=== PATIENT | female | born 1950 | race Caucasian/White ===

== ENCOUNTER → 2017-04-30 | Outpatient (CLI) | payer OTHER | LOC: EDSTATUS 11:52 → FIMAGING 13:10 | PROVIDERS: ATTEND Family Medicine | DX: M21.70 Unequal limb length (acquired), unspecified site (principal) ==

== ENCOUNTER 2018-08-19 07:30 | Inpatient (IN) | payer OTHER ==
[2018-08-28] MEDS ORDERED: CHLORHEXIDINE GLUC HIBICLENS 118 ML BTL TP ONE (10:55)
[2018-08-28] MEDS ORDERED: EPINEPHrine 1 MG/ML INJ ONE (10:55)
[2018-08-28] MEDS ORDERED: THROMBIN (BOVINE) 20,000 UNIT VIAL TP ONE (10:55)
[2018-08-28] MEDS ORDERED: BUPIVACAINE 0.25% 30 ML SDV ONE (10:55)
[2018-08-28] MEDS ORDERED: BACITRACIN 50,000 UNITS/10 ML SYR IRR ONE ×2 (10:55→14:50)
[2018-08-28] MEDS ORDERED: ACETAMINOPHEN 500 MG TAB PO ONE (10:58)
[2018-08-28] MEDS ORDERED: GABAPENTIN 300 MG CAP PO ONE (10:58)
[2018-08-28] MEDS ORDERED: ceFAZolin 2 GM/DEXTROSE 100 ML IV ONE (10:58)
[2018-08-28] MEDS ORDERED: LR 1,000 ML IV ONE (10:59)
[2018-08-28] MEDS ORDERED: MIDAZOLAM 2 MG/2 ML VIAL IVP ONE (11:15)
--- NOTE | 2018-08-28 11:18 | PDHPUP ---
History & Physical Update H&P update statement: This history and physical update is based on an assessment of the patient which was completed after admission or registration (within 24 hours), but prior to the surgery/procedure. H&P update: H&P reviewed & patient examined, no change in patient's condition since H&P completed
[2018-08-28] MEDS ORDERED: PROPOFOL/EMULSION 500 MG/50 ML BOTTLE IV ONE ×4 (11:40→15:27)
[2018-08-28] MEDS ORDERED: SUCCINYLCHOLINE CHLORIDE 200 MG/10 ML SYR IVP ONE (11:41)
[2018-08-28] MEDS ORDERED: REMIFENTANIL HCL 1 MG VIAL ONE ×4 (11:42→15:19)
[2018-08-28] MEDS ORDERED: ePHEDrine SULFATE 25 MG/5 ML SYR ONE (11:59)
[2018-08-28] MEDS ORDERED: fentaNYL 100 MCG/2 ML INJ IVP PRN (12:23)
[2018-08-28] MEDS ORDERED: ONDANSETRON 4 MG/2 ML VIAL ONE ×3 (12:23→17:26)
[2018-08-28] MEDS ORDERED: DEXAMETHASONE 4 MG/ML VIAL ONE ×2 (12:23→12:24)
[2018-08-28] MEDS ORDERED: HYDROmorphONE/DILAUDID 2 MG/ML INJ IVP PRN ×2 (12:23→12:29)
[2018-08-28] MEDS ORDERED: oxyCODONE IR 5 MG TAB PO PRN (12:23)
[2018-08-28] MEDS ORDERED: PROMETHAZINE HCL 25 MG/ML INJ IVP PRN (12:23)
[2018-08-28] MEDS ORDERED: ONDANSETRON 4 MG/2 ML VIAL IVP PRN ×2 (12:23→12:29)
[2018-08-28] MEDS ORDERED: NALOXONE HCL 0.4 MG/ML INJ IVP PRN (12:23)
--- NOTE | 2018-08-28 12:23 | PDANEPAE ---
ANE History of Present Illness L3-S1 TLIF ANE Past Medical History - Cardiovascular History Hx Hypertension: No Hx Arrhythmias: No Hx Chest Pain: No Hx Coronary Artery / Peripheral Vascular Disease: No Hx CHF / Valvular Disease: No Hx Palpitations: No - Pulmonary History Hx COPD: No Hx Asthma/Reactive Airway Disease: No Hx Recent Upper Respiratory Infection: No Hx Oxygen in Use at Home: No Hx Sleep Apnea: No Sleep Apnea Screening Result - Last Documented: Positive - Neurologic History Hx Cerebrovascular Accident: No Hx Seizures: No Hx Dementia: No - Endocrine History Hx Diabetes: No Endocrine History Comment: HYPOTHYROID - Renal History Hx Renal Disorders: No - Liver History Hx Hepatic Disorders: No Hepatic History Comment: ELBA - Neurological & Psychiatric Hx Hx Neurological and Psychiatric Disorders: No - Cancer History Hx Cancer: No - Congenital Disorder History Hx Congenital Disorders: No - GI History Hx Gastrointestinal Disorders: No - Other Health History Other Health History: NEG - Chronic Pain History Chronic Pain: Yes (GENERALIZED PAIN BACK,BUTTOCK, NECK) - Surgical History Prior Surgeries: R KNEE MENISCUS. BREAST REDUCTION. EYE SURG -MULT -JOSE. LUMBAR FUSION 2009. 2010 CERVICAL FUSION. R ANKLE. L KNEE ACL. CHOLECYSTECTOMY. HYSTERECTOMY ANE Review of Systems Review of Systems: - Exercise capacity METS (RN): 4 METS ANE Patient History - Allergies Allergies/Adverse Reactions: Sulfa (Sulfonamide Antibiotics) Allergy (Verified 07/11/18 15:47) SKIN RASH - Home Medications Home Medications: Herbals/Supplements -Info Only 1 ea PO DAILY 07/11/18 [Last Taken 08/23/18] Ibuprofen [Motrin (*)] 200 mg PO DAILY PRN 07/11/18 [Last Taken 08/20/18] Levothyroxine [Synthroid 88 mcg (*)] 88 mcg PO DAILY06 07/11/18 [Last Taken 06:30] Biotin 08/28/18 [Last Taken 08/23/18] Cholecalciferol Vit D3 [Vitamin D3 (*)] 1,000 units PO DAILY 08/28/18 [Last Taken 08/23/18] Glucosamine/Chondroitin [Glucosamine/Chondroitin (*)] 1 each PO DAILY 08/28/18 [ Last Taken 08/23/18] Lutein/Zeaxanthin 08/28/18 [Last Taken 08/25/18] - NPO status NPO Since - Liquids (Date): 08/28/18 NPO Since - Liquids (Time): 07:00 NPO Since - Solids (Date): 08/27/18 NPO Since - Solids (Time): 21:00 - Smoking Hx Smoking Status: Never smoked - Family Anes Hx Family Hx Anesthesia Complications: NEG ANE Labs/Vital Signs - Vital Signs Blood Pressure: 128/68 Heart Rate: 61 Respiratory Rate: 20 O2 Sat (%): 97 Height: 157.48 cm Weight: 69.853 kg ANE Physical Exam - Airway Neck exam: FROM Mallampati Score: Class 2 Mouth exam: normal dental/mouth exam - Pulmonary Pulmonary: clear to auscultation - Cardiovascular Cardiovascular: regular rate and rhythym - ASA Status ASA Status: II ANE Anesthesia Plan Anesthesia Plan: general endotracheal anesthesia Total IV Anesthesia: Yes
[2018-08-28] MEDS ORDERED: LACTULOSE 20 GM/30 ML UDCUP PO PRN (12:29)
[2018-08-28] MEDS ORDERED: BISACODYL 10 MG SUPP PR PRN (12:29)
[2018-08-28] MEDS ORDERED: ONDANSETRON DISINTEGRATING 4 MG TAB PO PRN (12:29)
[2018-08-28] MEDS ORDERED: diphenhydrAMINE 25 MG CAP PO PRN (12:29)
[2018-08-28] MEDS ORDERED: MAGNESIUM HYDROXIDE 30 ML UDCUP PO PRN (12:29)
[2018-08-28] MEDS ORDERED: POLYETHYLENE GLYCOL 3350 17 GM PKT PO PRN (12:29)
[2018-08-28] MEDS ORDERED: NS 1,000 ML IV SCH (12:30)
--- NOTE | 2018-08-28 13:43 | PDMN ---
Medical Necessity Medical necessity: [facility] IP only surgery; cpt 64847 (L3/4, L5/S2 TLIF)
[2018-08-28] MEDS ORDERED: HYDROmorphONE/DILAUDID 2 MG/ML INJ ONE (15:19)
[2018-08-28] MEDS ORDERED: ceFAZolin 1 GM VIAL ONE (15:28)
[2018-08-28] MEDS ORDERED: RANITIDINE 50 MG/2 ML VIAL ONE (16:34)
--- NOTE | 2018-08-28 17:22 | POSTANESTH ---
Post Anesthetic Evaluation Cardiovascular Status: Normal, Stable Respiratory Status: Normal, Stable Level of Consciousness/Mental Status: Can Participate in Eval, Alert and Oriented Pain Control: Adequate, Prn Tx Ordered Nausea/Vomiting Control: Adequate, Prn Tx Ordered Complications Possibly Related to Anesthesia: None Noted
[2018-08-28] MEDS ORDERED: fentaNYL 100 MCG/2 ML INJ ONE (17:26)
--- NOTE | 2018-08-28 17:32 | POSTOPPROG ---
Post Op Note Date of Operation: 08/28/18 Surgeon: Brenda Lopez Densitometer Reader: Carly Rose NP Anesthesiologist: Kindra Anesthesia: GET(General Endotracheal) Pre-op Diagnosis: Lumbar Stenosis, ASD Procedure: L3-4, L5-S1 TLIF, removal of hardwre,[id number] Inf/Abcess present in the surg proc area at time of surgery?: No Depth: Deep Incisional (Fascial) EBL: 100-500 Total fluids administered: see anesthesia Complications: none Drains: Ulisses Hope Date of Surgery: 08/28/18 Post Op Day: 0 Assessment/Plan: Assessment: 68 yr old F s/p L3-4, L5-S1 TLIF with removal of hardwareL4-5 and PSF L3-S1 Plan: -Admit Med surg -Pain management, patient only tolerates Dilaudid -PT/OT -Brace on when out of bed -HASEEB bulb suction -Xrays in am -Please call neurosurgery with any questions/concerns Subjective: waking up in pacu Objective: waking up in pacu PHILLIPS X4 5/5 BLE Sensation intact to light touch BLE HASEEB patent Dressing CDI Appropriate Neuro Check Frequency Ordered: Yes
[2018-08-28] MEDS ORDERED: HYDROmorphONE/DILAUDID 1 MG/ML INJ ONE (17:51)
[2018-08-28] MEDS: HYDROmorphONE/DILAUDID 1 MG/ML INJ IVP PRN ×2 (17:54→18:13)
[2018-08-28] MEDS: ACETAMINOPHEN 500 MG TAB PO SCH ×2 (19:42→22:15)
[2018-08-28] MEDS: GABAPENTIN 300 MG CAP PO SCH ×2 (19:43→22:16)
[2018-08-28] MEDS: FAMOTIDINE 20 MG TAB PO SCH (19:55)
[2018-08-28] MEDS: SENNOSIDES/DOCUSATE SODIUM TAB PO SCH (19:55)
[2018-08-28] MEDS: ceFAZolin 2 GM/DEXTROSE 100 ML IV SCH (19:57)
[2018-08-28] MEDS: METHOCARBAMOL 750 MG TAB PO PRN (20:55)
[2018-08-28] MEDS: HYDROmorphONE/DILAUDID 2 MG TAB PO PRN (22:20)
[2018-08-29] MEDS: HYDROmorphONE/DILAUDID 2 MG TAB PO PRN ×5 (01:35→20:13)
[2018-08-29] MEDS: ceFAZolin 2 GM/DEXTROSE 100 ML IV SCH (04:20)
[2018-08-29 05:26] LABS: PLATELET COUNT 225 10^3/uL (150-400)
[2018-08-29] MEDS: LEVOTHYROXINE 88 MCG TAB PO SCH (05:59)
[2018-08-29] MEDS: GABAPENTIN 300 MG CAP PO SCH ×3 (06:00→21:39)
[2018-08-29] MEDS: ACETAMINOPHEN 500 MG TAB PO SCH ×3 (06:00→22:51)
--- NOTE | 2018-08-29 06:04 | GOP ---
DATE OF OPERATION: 08/28/2018 SURGEON: Mike Lopez MD DIE TRIMMER: Carly Rose NP. PREOPERATIVE DIAGNOSIS: 1. 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 2. Prior lumbar fusion L4-5. 3. Left footdrop. 4. Severe left foraminal stenosis L5-S1. 5. Severe disk degenerative disease L5-S1. 6. Severe spinal stenosis and bilateral recess stenosis at L3-4. 7. Bilateral lumbosacral radiculopathy. POSTOPERATIVE DIAGNOSIS: 1. 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 2. Prior lumbar fusion L4-5. 3. Left footdrop. 4. Severe left foraminal stenosis L5-S1. 5. Severe disk degenerative disease L5-S1. 6. Severe spinal stenosis and bilateral recess stenosis at L3-4. 7. Bilateral lumbosacral radiculopathy. PROCEDURE PERFORMED: 1. Posterolateral and intervertebral arthrodesis L3-4 and L5-S1 (82973, 13075). 2. Placement of biomechanical intervertebral device L3-4, L5-S1 (06365 x2). 3. Posterior segmental instrumentation L3, L4, L5, S1. 4. Removal of posterior nonsegmental instrumentation across a single interspace. 5. Microscope. 6. Same incision bone graft harvest. 7. Spinal stereotaxis. FINDINGS: Consistent with our known diagnosis. SPECIMENS: None. ESTIMATED BLOOD LOSS: 400 cc. INDICATIONS: The patient is a middle-aged female, who had a prior history of a single level lumbar f usion at L4-5 in 2008 with terrific result. She did very well from this and began over the last year or so, to develop increasing symptoms in her low back and radiating pain principally into the right leg, but she also began to develop weakness in the left foot and weakness in the left leg. Her imagi ng demonstrated the development of severe stenosis above the fusion, but there was also collapse of t he L5-S1 disk and severe neural foraminal compromise, much worse on the left than on the right, consi stent with her footdrop. We had scheduled her for adjacent segment surgery at L3-4 and L5-S1. [facility], only a single-level was approved originally, at L3-4. We delayed her surgery despite her footdro p and the physician reviewer of the case suggested that we have Radiology review the MRI. The physic sebastian reviewer suggested that we review the MRI with the radiologist and indeed we did so and reviewed the MRI with the radiologist, who agreed that there was significant left foraminal stenosis at L5-S1 that could account for the patient's clinical exam and a left-sided footdrop. After doing this and o btaining an addendum to the radiographic report, we called back the insurance company and now the davidson escalante reviewer that gave us this advice was on vacation. The case could not be approved in the abse nce of that physician reviewer, so the case got delayed. They had only approved a single-level and w e did not want to proceed without insurance approval. Because the case was delayed, even the approva l at 3-4 was now no longer valid and we had to start the process once again with the insurance compan y. We did start the process again and the day before surgery, the physician reviewer suggested that we do L3-4 and that we could do L5-S1 and that the insurance company would pay for L5-S1 provided the intraoperative findings justified doing that level and they encouraged us to proceed and so therefor e we did. I discussed with the patient the risk of nerve injury, continued symptoms, persistent foot weakness, pseudoarthrosis, adjacent segment disease and the need for revision surgery, and she wante d to proceed despite all these risks. She knew there was a chance that surgery may fail to eliminate her discomfort, but she did want to proceed. DESCRIPTION OF PROCEDURE: The patient was taken to the operating room, placed in supine position. G eneral anesthesia was begun. She was flipped prone on the Ulisses table. Care was taken to pad all points of contact. Her back was sterilely prepped and draped in the usual fashion. A localizing x-r ay was taken. Her prior incision was clearly visible. It measured about 6-1/2 to 7 cm. She was crow rilely prepped and draped and we used the prior incision, extended it inferiorly for about 2 cm and r ostrally for about 2 cm. The subcutaneous tissue was dissected using the plasma blade down through t he fascia and a subperiosteal dissection was made down the inferior lamina of L2. The complete dudley a of L3 was exposed. The hardware at L4-5 was exposed. We exposed the L5-S1 facet joints on each si de. We removed the prior hardware at L4-5 and it was relatively straightforward to remove. There wi th a crosslink in place as well. It did take some time. There was bony overgrowth over the hardware , but we were able to get it out without difficulty. We placed Gelfoam bullets in the holes that rem ained. We denuded the L3-4 and the L5-S1 facet joints on each side to create arthrodesis. We attach ed the Appianalth reference frame to the spinous process. We performed an O-arm spin, and using framele ss Stealth stereotaxy, placed pedicle screws bilaterally in the sacrum, bilaterally at L3 and then we replaced the screws at L4 and L5. There were a total of 8 screws placed. The sacral screws were bi cortical. They all stimulated at acceptable levels. There was very good bony purchase at each level . We then took a 90 mm kiet on the left and a 100 mm kiet on the right, placed it down over the tulips and distracted slightly at L3-4 and ever so slightly at L5-S1. We locked the rods in place, shot an x-ray confirming the position of our hardware and the curve of the spine. I was happy with both her lordosis as well as her coronal balance. We then removed all the soft tissue and the bone at L3-4, 4-5, 5-1, harvested the inferior L3 spinous process, the complete L4 spinous process, the L5 spinous process for autologous grafting purposes. Under the microscope, we drilled bilateral laminas at L3-4 and harvested this bone for autologous grafting purposes. We drilled out the left yanci lamina of L5 and the left L5-S1 facet joint and harvested this bone for autologous grafting purposes. Under the microscope, we then began our decompression of L5-S1, and as we drilled through the lamina at L5-S1, there was indeed bone present, but it was not normal laminar bone. It appeared that she had had a pr ior laminotomy here. There was no ligamentum flavum deep to this and this was all stuck to the dura. It did take considerable time to remove the bone from the dura. We localized the left S1 nerve chris t and then we performed a complete facetectomy and decompressed the exiting L5 nerve root. There was very significant compression of the L5 root in the neural foramen by the superior articulating proce ss of the sacrum. This was also a fact that we appreciated intraoperatively while putting in the ped icle screws and justified us doing the L5-S1 level. We performed intraoperative CT imaging. It was actually an O-arm spin and on the O-arm spin, 1 could clearly see the compromised neural foramen at t he L5-S1 level. So now we had an MRI, a patient's clinical exam and affectively CT data all showing the same thing, justifying our surgery at L5-S1. When we opened the neural foramen at L5-S1, there w as severe compression of the L5 nerve root. We decompressed it from the mid pedicle of L5 all the wa y out beyond the pedicle of S1 and we got a great decompression. I was very happy with the way the shana bajwamanuel looked at the conclusion of this part of the procedure. We performed bilateral decompressions a t L3-4 and got a great decompression at that level as well. There was severe stenosis on each side. We performed a complete right L3-4 facetectomy and decompressed the exiting L3 nerve root at L3-4. Under the operating microscope, we turned our attention to the L5-S1 disk space. We incised the disk , it was very degenerative. There was not much room in the disk space. We removed the disk and the cartilaginous endplates completely. We roughened the subchondral bone to create arthrodesis of the i nterspace. We then packed the disk space with BMP and bone autograft. We used a total of 4 mg of BM P for the entire surgery; 2 mg total were used at L5-S1 and 2 mg at L3-4, 1 mg in the interspace and 1 mg posterolaterally at each level. We chose a 7 mm [place] PEEK intervertebral device, inserted i t at L5-S1 and a great fit was obtained. We then turned our attention to L3-4 where from the right-h and side we approached the L3-4 disk, removed the disk and the cartilaginous endplates completely. W e roughened the subchondral bone to create arthrodesis at L3-4. We packed bone autograft and BMP int o the disk space at L3-4 and then inserted a 7 x 28 mm device at that level and expanded it under flu oroscopic guidance. I was happy with the positioning of the device. We then decorticated all the re maining posterolateral bone bilaterally to create arthrodesis and placed bone autograft and the remai oscar BMP posterolaterally bilaterally. A subfascial drain was placed. We then closed the incision i n multiple layers using Vicryl sutures. A running PDS was placed in the skin itself. The patient wa s reversed from anesthesia. She was then extubated and transferred to recovery room in stable condit ion. There were no complications. COMPLICATIONS: None. INSTRUMENTATION REMOVED: Solara 475 system. INSTRUMENTATION PLACED: Solara 5.5 mm system. We used an expandable Elevate cage at L3-4 and a 7 mm [place] fixed cage at L5-S1. /[id number]/MODL
--- NOTE | 2018-08-29 07:11 | NEUSURGPN ---
Date of Surgery: 08/28/18 Post Op Day: 1 Assessment/Plan: Assessment: 68 yr old F s/p L3-4, L5-S1 TLIF with removal of hardware L4-5 and PSF L3-S1 POD #1 Plan: -s/p L spine fusion and decompression-doing fine this am with expected lower back pain -continue with Med surg -Pain management, patient only tolerates Dilaudid and doing well now with this medication -PT/OT-CPM -Brace on when out of bed -HASEEB bulb suction-continue at this time -Xrays pending this am -Please call neurosurgery with any questions/concerns -pt seen by Dr Lopez as well Subjective: Awake and alert. NAD. Eating/drinking and voiding. No f/c/n/v/d. No weinberg/neck/ chest/abd or gu complaints. Passing gas Objective: AAO x 3, PERRLA/EOMI no droop CN 2-12 grossly intact PHILLIPS X4 5/5 BLE Sensation intact to light touch BLE HASEEB patent Dressing CDI Neuro Check Frequency: per routine Urinary Catheter in Place: No Catheter Insertion Date: 08/28/18 - Physician Discussed Patient with : John Patient Seen by : John Neurosurgery Physical Exam - Vitals, I&O, Labs I and O 08/28/18 08/29/18 08/30/18 05:59 05:59 05:59 Intake Total 3520 827 Output Total 1600 Balance 1920 827 Weight 69.853 kg Intake: Oral (ml) 1320 IV Intake (ml) 2200 IV Infused (ml) 827 Ns 1,000 ml @ 75 mls/hr 827 IV CONT CHLIO Rx#: [id number] Output: Urine (ml) 900 Catheter 900 Estimated Blood Loss (ml) 400 HASEEB Drain Output (ml) 300 #1 Ulisses Hope 300 Vital Signs Temp Pulse Resp BP Pulse Ox 37.0 C 73 16 105/55 L 94 08/29/18 04:00 08/29/18 04:00 08/29/18 04:00 08/29/18 04:00 08/29/18 04:00 Laboratory Results 08/29/18 05:07 08/29/18 05:07 ICD10 Worksheet Patient Problems: Problems Problem Status Onset Lumbar radicular pain Acute Lumbar stenosis Acute - ICD10 Problem Qualifiers (1) Lumbar stenosis (2) Lumbar radicular pain
[2018-08-29] MEDS: FAMOTIDINE 20 MG TAB PO SCH ×2 (08:42→20:13)
[2018-08-29] MEDS: METHOCARBAMOL 750 MG TAB PO PRN (08:42)
[2018-08-29] MEDS: SENNOSIDES/DOCUSATE SODIUM TAB PO SCH ×2 (08:42→20:13)
--- NOTE | 2018-08-29 10:16 | ASMTCMCOM ---
CM Note CM Note Notes: Patient is POD #1 L3-4, L5-S1 TLIF w removal of hardware and PSF L3-S1. Patient is normally independent and lives w her . PT/OT have been ordered. If she has any discharge needs, Case Management will follow. Date Signed: 08/29/2018 10:15 AM Electronically Signed By:Love Joiner RN
[2018-08-30 00:07] VITALS: BP 108/54
[2018-08-30] MEDS: HYDROmorphONE/DILAUDID 2 MG TAB PO PRN ×2 (01:27→08:48)
[2018-08-30] MEDS: LEVOTHYROXINE 88 MCG TAB PO SCH (07:00)
[2018-08-30] MEDS: GABAPENTIN 300 MG CAP PO SCH ×2 (07:00→13:53)
[2018-08-30] MEDS: ACETAMINOPHEN 500 MG TAB PO SCH ×2 (07:00→13:53)
--- NOTE | 2018-08-30 08:36 | NEUSURGPN ---
Assessment/Plan: Assessment: 68 yr old F s/p L3-4, L5-S1 TLIF with removal of hardware L4-5 and PSF L3-S1 POD #2 Plan: -s/p L spine fusion and decompression-doing well and ambulating fine -continue with Med surg -Pain management, patient only tolerates Dilaudid and doing well now with this medication -PT/OT-CPM -Brace on when out of bed -HASEEB bulb - DC today -Xrays show stable hardware -Plan for DC to home today if continues to do well -Please call neurosurgery with any questions/concerns Subjective: Pt resting in bedside chair, has been up and ambulating. Doing well. Objective: AAOx3 NAD VSS MAEx4 Motor 5/5 BLE HASEEB drain in place +LT Urinary Catheter in Place: No Catheter Insertion Date: 08/28/18 - Physician Discussed Patient with : John Neurosurgery Physical Exam - Vitals, I&O, Labs I and O 08/29/18 08/30/18 08/31/18 05:59 05:59 05:59 Intake Total 3520 3315 Output Total 1600 2410 Balance 1920 905 Weight 69.853 kg Intake: Oral (ml) 1320 2300 IV Intake (ml) 2200 188 IV Infused (ml) 827 Ns 1,000 ml @ 75 mls/hr 827 IV CONT CHILO Rx#: [id number] Output: Urine (ml) 900 2050 Catheter 900 Toilet 2050 Estimated Blood Loss (ml) 400 HASEEB Drain Output (ml) 300 360 #1 Ulisses Hope 300 360 Other: Intake Quantity Yes Sufficient Number of Voids Toilet 2 Vital Signs Temp Pulse Resp BP Pulse Ox 36.8 C 74 16 108/54 L 94 08/30/18 07:36 08/30/18 07:36 08/30/18 07:36 08/30/18 07:36 08/30/18 07:36 Laboratory Results 08/29/18 05:07 08/29/18 05:07 ICD10 Worksheet Patient Problems: Problems Problem Status Onset Lumbar radicular pain Acute Lumbar stenosis Acute
[2018-08-30] MEDS: METHOCARBAMOL 750 MG TAB PO PRN (08:40)
[2018-08-30] MEDS: FAMOTIDINE 20 MG TAB PO SCH (08:41)
[2018-08-30] MEDS: SENNOSIDES/DOCUSATE SODIUM TAB PO SCH (08:41)
--- NOTE | 2018-08-30 12:42 | ASMTLACE ---
LACE Length of stay for Answers: 2 days current admission Acuity / Level of Answers: Yes Care: Did the patient have an inpatient admission? Comorbidities - select Answers: Opioid dependence all that apply / Chronic pain Other Notes: Hypothyroid # of Emergency department Answers: 0 visits in the last 6 months Score: 10 Date Signed: 08/30/2018 12:41 PM Electronically Signed By:NONA Wang
--- NOTE | 2018-08-30 12:43 | ASMTCMCOM ---
CM Note CM Note Notes: Pt medically stable for d/c. PT rec home/outpatient. No CM d/c needs identified. Date Signed: 08/30/2018 12:42 PM Electronically Signed By:NONA Wang
[2018-08-31] MEDS ORDERED: ENOXAPARIN 40 MG/0.4 ML SYR SC SCH (09:00)
--- NOTE | 2018-09-04 15:28 | GDS ---
PRIMARY DIAGNOSIS: Lumbar stenosis. OPERATIONS/PROCEDURES: L3-4, L5-S1 TLIF with removal hardware and L3-S1 fusion. HOSPITAL COURSE: This patient presented to the [facility] on August 28, 2018, for an L3-4, L5-S1 TLIF with removal of hardware and L3-S1 fusion with Dr. Lopez. After surgery, the patient was in stable condition and transferred from the operating room to the recovery room, in PACU, and then to the postsurgical floor. While on the floor, she received physical and occupational therapy and pain management. Patient was in stable condition and was subsequently discharged to home on August 30, 2018. Patient scheduled to follow up in the office for postop visit in 2 weeks. She has been instructed to call the office for any questions or concerns at [phone]. CONSULTS: None. COMPLICATIONS: None. DISCHARGE CONDITION: Stable. DISCHARGE MEDICATIONS: See discharge medication reconciliation for details DISCHARGE INSTRUCTIONS: The patient is to avoid any bending or twisting at the waist. She is to avoid lifting greater than 10 pounds for the next 2 weeks. She is to wear her brace when she is out of bed. Okay to shower on postop day 3. The patient has been instructed to avoid any NSAIDs for the next 4 to 6 months. /[id number]/MODL MTDD
== END 2018-08-30 14:11 | disposition home or self-care (01) | DRG 455 ==
LOC: F3N 08-28 10:17
PROVIDERS: ADMIT Neurological Surgery; ATTEND Neurological Surgery
PROC: 0ST20ZZ Resection of Lumbar Vertebral Disc, Open Approach (ICD-10-PCS; principal; 2018-08-28 12:15)
PROC: 01NB0ZZ Release Lumbar Nerve, Open Approach (ICD-10-PCS; principal; 2018-08-28 12:15)
PROC: 0SP00AZ Removal of Interbody Fusion Device from Lumbar Vertebral Joint, Open Approach (ICD-10-PCS; principal; 2018-08-28 12:15)
PROC: 0SG0071 Fusion of Lumbar Vertebral Joint with Autologous Tissue Substitute, Posterior Approach, Posterior Column, Open Approach (ICD-10-PCS; principal; 2018-08-28 12:15)
PROC: 0SG00AJ Fusion of Lumbar Vertebral Joint with Interbody Fusion Device, Posterior Approach, Anterior Column, Open Approach (ICD-10-PCS; principal; 2018-08-28 12:15)
PROC: 0SG3071 Fusion of Lumbosacral Joint with Autologous Tissue Substitute, Posterior Approach, Posterior Column, Open Approach (ICD-10-PCS; principal; 2018-08-28 12:15)
PROC: 00NY0ZZ Release Lumbar Spinal Cord, Open Approach (ICD-10-PCS; principal; 2018-08-28 12:15)
PROC: 0SG30AJ Fusion of Lumbosacral Joint with Interbody Fusion Device, Posterior Approach, Anterior Column, Open Approach (ICD-10-PCS; principal; 2018-08-28 12:15)
DX: M48.07 Spinal stenosis, lumbosacral region (principal); M51.37 Other intervertebral disc degeneration, lumbosacral region; M48.061 Spinal stenosis, lumbar region without neurogenic claudication; M51.17 Intervertebral disc disorders with radiculopathy, lumbosacral region; E03.9 Hypothyroidism, unspecified; Z98.1 Arthrodesis status
CPT/HCPCS: 97116-GP; 97161-GP; 97165-GO; 97535-GO; C1713; G8978-GP-CK; G8979-GP-CJ; G8987-GO-CJ; G8988-GO-CI; G8989-GO-CI; J0171; J0330; J0690; J1100; J1170; J2250; J2405; J2704; J2780; J3010

== ENCOUNTER → 2019-04-01 | Outpatient (CLI) | payer OTHER | LOC: BRMIMAGING 09:19 | PROVIDERS: ATTEND Family Medicine | DX: Z13.820 Encounter for screening for osteoporosis (principal); M85.89 Other specified disorders of bone density and structure, multiple sites ==